=== PATIENT | female | born 1970 | race African-American/Black ===

== ENCOUNTER → 2016-10-30 | Outpatient (CLI) | payer OTHER ==
--- NOTE | 2016-10-30 14:25 | WOMENS IMAGING REPORT ---
EXAM DESCRIPTION: U/S PELVIS NON-OB COMPLETED DATE/TIME: 10/30/2016 2:01 pm REASON FOR STUDY: ABNORMAL UTERINE 93.9 N93.9 ABNORMAL UTERINE AND VAGINAL BLEEDING, UNSPECIFIED COMPARISON: None. TECHNIQUE: Dynamic and static grayscale images acquired of the pelvis via transabdominal approach an d recorded on PACS. Additional selected color Doppler and spectral images recorded. LIMITATIONS: None. FINDINGS: UTERUS: The myometrium is heterogeneous with multiple definable fibroids. The largest amanda sures 4.6 cm. ENDOMETRIAL STRIPE: 10 mm CERVIX: No nabothian cysts. RIGHT OVARY: No abnormal masses. RIGHT OVARY DOPPLER: Normal arterial vascular flow without evidence for torsion. LEFT OVARY: Not seen LEFT OVARY DOPPLER: Ovary not seen FREE FLUID: None noted. OTHER: No other significant finding. MEASUREMENTS: UTERUS: 13.8 x 7.7 x 9.8 cm ENDOMETRIAL STRIPE: 10 mm RIGHT OVARY: 27 x 21 x 28 mm LEFT OVARY: Not seen IMPRESSION: Multiple uterine fibroids. TECHNICAL DOCUMENTATION: JOB ID: [id number] [employer]- All Rights Reserved
== END ==
LOC: WI 13:43
PROVIDERS: ATTEND Family Medicine
DX: N93.9 Abnormal uterine and vaginal bleeding, unspecified (principal); D25.9 Leiomyoma of uterus, unspecified
CPT/HCPCS: 76856

== ENCOUNTER 2017-08-26 06:36 | Emergency (ER) | payer OTHER, BC ==
--- NOTE | 2017-08-26 08:23 | ER Document Report ---
ED GI/ - General Chief Complaint: Flank Pain Stated Complaint: FLANK PAIN Time Seen by Provider: 08/26/17 07:31 Mode of Arrival: Ambulatory Information source: Patient Notes: 47 yo female c/o sharp crampy LLQ pain than radiates into the left flank since wednesday when she saw her PCP (dr. heart- dx with d/c for umbilical discharge). Pain woke her up, can't lay on her left side. Progressed this week. No openings for appt today. No n/v/d/. No fever or chills. sugeries: endometriosis lap, tummy tuck in 2013. LMP 5-4-18.( due for hyst-fibroids) No urinary sx. no hx crohns colitis, or diverticulitis. No vaginal discharge or odor. dyspareunia in april. Taking keflex and septra TRAVEL OUTSIDE OF THE [place] IN LAST 30 DAYS: No - Related Data Allergies/Adverse Reactions: No Known Allergies Allergy (Unverified 08/26/17 08:25) Past Medical History - General Information source: Patient - Social History Smoking Status: Never Smoker Frequency of alcohol use: Occasional Drug Abuse: None Lives with: Family Family History: Reviewed & Not Pertinent Patient has suicidal ideation: No Patient has homicidal ideation: No Pulmonary Medical History: Reports: Hx Asthma - exercise induced Renal/ Medical History: Denies: Hx Peritoneal Dialysis Past Surgical History: Reports: Hx Abdominal Surgery - tummy tuck, Hx Gynecologic Surgery - endometriosis Review of Systems - Review of Systems Constitutional: No symptoms reported EENT: No symptoms reported Cardiovascular: No symptoms reported Respiratory: No symptoms reported Gastrointestinal: No symptoms reported Genitourinary: No symptoms reported Female Genitourinary: See HPI Musculoskeletal: Back pain Skin: No symptoms reported Hematologic/Lymphatic: No symptoms reported Neurological/Psychological: No symptoms reported Physical Exam - Vital signs Vitals: Temp Pulse Resp BP Pulse Ox 98.6 F 80 18 125/79 99 08/26/17 06:44 08/26/17 06:44 08/26/17 06:44 08/26/17 06:44 08/26/17 06:44 Interpretation: Normal - General General appearance: Appears well, Alert - HEENT Head: Normocephalic, Atraumatic Eyes: Normal Conjunctiva: Normal Pupils: PERRL Neck: Supple. No: Lymphadenopathy - Respiratory Respiratory status: No respiratory distress Chest status: Nontender Breath sounds: Normal Chest palpation: Normal - Cardiovascular Rhythm: Regular Heart sounds: Normal auscultation Murmur: No - Abdominal Inspection: Normal Distension: No distension Bowel sounds: Normal Tenderness: Tender - left pelvic Organomegaly: No organomegaly - Back Back: Normal, Nontender. No: CVA tenderness - Extremities General upper extremity: Normal inspection, Nontender, Normal color, Normal ROM , Normal temperature General lower extremity: Normal inspection, Nontender, Normal color, Normal ROM , Normal temperature, Normal weight bearing. No: Carlos's sign - Neurological Neuro grossly intact: Yes Cognition: Normal Orientation: AAOx4 Cordova Coma Scale Eye Opening: Spontaneous Tatyana Coma Scale Verbal: Oriented Tatyana Coma Scale Motor: Obeys Commands Cordova Coma Scale Total: 15 Speech: Normal Motor strength normal: LUE, RUE, LLE, RLE Sensory: Normal - Psychological Associated symptoms: Normal affect, Normal mood - Skin Skin Temperature: Warm Skin Moisture: Dry Skin Color: Normal Skin irregularity: negative: Rash Course - Re-evaluation Re-evalutation: 08/26/17 11:33 renal us is negative, UA with 3+ bacteria, no WBC, wet prep shows bacterial vaginosis which I will treat with metronidazole. test is negative. - Vital Signs Vital signs: Temp Pulse Resp BP Pulse Ox 97.4 F 78 19 134/86 H 100 08/26/17 12:28 08/26/17 12:28 08/26/17 12:28 08/26/17 12:28 08/26/17 12:28 - Laboratory Result Diagrams: 08/26/17 08:02 08/26/17 08:02 Laboratory results interpreted by me: 08/26/17 08/26/17 08:02 08:02 MCH 26.8 L RDW 17.9 H AST 43 H Discharge - Discharge Clinical Impression: Bacterial vaginosis, Left pelvic pain, Left flank pain, Bacteriuria, Left ovarian cyst Condition: Good Disposition: HOME, SELF-CARE Instructions: Metronidazole ([facility]), Ovarian Cyst ([facility]), Pelvic Pain ([facility]), Vaginosis, Bacterial ([facility]) Additional Instructions: Motrin Tylenol Flagyl for the bacterial vaginosis do not drink alcohol when you take that Gonorrhea and Chlamydia test are negative Renal ultrasound is negative Urine culture is pending Continue the cephalexin and the Septra Return to the emergency room if symptoms worsen Small left ovarian cyst See [employer] INSTRUCTOR if persists Prescriptions: Ibuprofen [Motrin 800 mg Tablet] 800 mg PO Q8HP PRN #30 tablet PRN Reason: Metronidazole [Flagyl 500 mg Tablet] 500 mg PO BID #14 tablet Referrals: TYE HEART MD [Primary Care Provider] - Follow up as needed BERONICA NEUMANN MD [ACTIVE STAFF] - Follow up as needed
[2017-08-26 08:41] LABS: ABSOLUTE EOSINOPHILS # (AUTO) 0.2 10^3/uL (0.0-0.6); ABSOLUTE LYMPHOCYTES (AUTO) 1.9 10^3/uL (0.5-4.7); ABSOLUTE MONOCYTES (AUTO) 0.3 10^3/uL (0.1-1.4); ABSOLUTE NEUT (AUTO) 2.8 10^3/uL (1.7-8.2); BASOPHILS % (AUTO) 0.6 % (0-2); EOSINOPHILS % (AUTO) 3.7 % (0-6); HEMATOCRIT 39.6 % (36.0-47.0); HEMOGLOBIN 13.1 g/dL (12.0-15.5); LYMPHOCYTES % (AUTO) 36.1 % (13-45); MEAN CORPUSCULAR HEMOGLOBIN 26.8 pg (27.0-33.4); MEAN CORPUSCULAR HGB CONC 33.1 g/dL (32.0-36.0); MEAN CORPUSCULAR VOLUME 81 fl (80-97); MONOCYTES % (AUTO) 6.2 % (3-13); PLATELET COUNT 324 10^3/uL (150-450); RED CELL DISTRIBUTION WIDTH 17.9 % (11.5-14.0); SEGMENTED NEUTROPHILS % (AUTO) 53.4 % (42-78); TOTAL CELLS COUNTED % (AUTO) 100 %; WHITE BLOOD COUNT 5.3 10^3/uL (4.0-10.5)
[2017-08-26 08:52] LABS: APPEARANCE,URINE CLEAR; BILIRUBIN,URINE NEGATIVE (NEGATIVE); COLOR,URINE YELLOW; GLUCOSE, URINE NEGATIVE (NEGATIVE); KETONES,URINE NEGATIVE (NEGATIVE); LEUKOCYTE ESTERASE,URINE NEGATIVE (NEGATIVE); NITRITE,URINE NEGATIVE (NEGATIVE); PROTEIN,URINE NEGATIVE (NEGATIVE); URINE SPECIFIC GRAVITY 1.016; UROBILINOGEN,URINE NEGATIVE mg/dL (<2.0)
[2017-08-26 09:00] LABS: ALANINE AMINOTRANSFERASE 51 U/L (9-52); ALBUMIN 4.2 g/dL (3.5-5.0); ALKALINE PHOSPHATASE 79 U/L (38-126); ANION GAP 12 (5-19); ASPARTATE AMINO TRANSFERASE 43 U/L (14-36); BILIRUBIN,DIRECT 0.3 mg/dL (0.0-0.4); BILIRUBIN,TOTAL 0.3 mg/dL (0.2-1.3); BLOOD UREA NITROGEN 12 mg/dL (7-20); CALCIUM 9.9 mg/dL (8.4-10.2); CARBON DIOXIDE 24 mmol/L (22-30); CHLORIDE 105 mmol/L (98-107); GLUCOSE 81 mg/dL (75-110); POTASSIUM 4.7 mmol/L (3.6-5.0); SODIUM 140.9 mmol/L (137-145); TOTAL PROTEIN 7.3 g/dL (6.3-8.2)
[2017-08-26 09:42] LABS: BACTERIA (WET MOUNT) 4+ BACTERIA SEEN; EPITHELIALS (WET MOUNT) 4+ EPITHELIALS SEEN; RBCS (WET MOUNT) FEW RBCS SEEN; T.VAGINALIS (WET MOUNT) NO TRICHOMONAS SEEN; WBCS (WET MOUNT) 2+ WBCS SEEN; YEAST (WET MOUNT) NO YEAST SEEN
[2017-08-26 11:11] LABS: CHLAM PCR NOT DETECTED (NOT DETECT); GON PCR NOT DETECTED (NOT DETECT)
--- NOTE | 2017-08-26 11:17 | RADIOLOGY REPORT (SQ) ---
EXAM DESCRIPTION: U/S RETROPERITON (RENAL/AORTA) COMPLETED DATE/TIME: 08/26/2017 11:04 am REASON FOR STUDY: 3+ bacteria, flank pain COMPARISON: None. TECHNIQUE: Dynamic and static grayscale images acquired of the kidneys and bladder and recorded on P ACS. Additional selected color Doppler and spectral images recorded. LIMITATIONS: None. FINDINGS: RIGHT KIDNEY: Normal size, 8.8 cm. Normal echogenicity. No solid or suspicious masses. No hydronephrosis. No calcifications. LEFT KIDNEY: Normal size, 9.4 cm. Normal echogenicity. No solid or suspicious masses. No hydronephro sis. No calcifications. BLADDER: The urinary bladder is incompletely filled and not well evaluated. OTHER FINDINGS: No other significant finding. IMPRESSION: Normal renal ultrasound. The bladder is poorly evaluated. TECHNICAL DOCUMENTATION: JOB ID: [id number] [employer]- All Rights Reserved Reading location - IP/workstation name: [email or web address]
--- NOTE | 2017-08-26 11:32 | RADIOLOGY REPORT (SQ) ---
EXAM DESCRIPTION: U/S NON OB PEL W/DOPPLER COMPLETED DATE/TIME: 08/26/2017 11:19 am REASON FOR STUDY: left pelvic pain LMP 07/30/2017 COMPARISON: 10/30/2016 TECHNIQUE: Dynamic and static grayscale images acquired of the pelvis via transabdominal approach an d recorded on PACS. Additional selected color Doppler and spectral images recorded. LIMITATIONS: None. FINDINGS: UTERUS: Multiple uterine fibroids. The largest measures 6.4 cm. ENDOMETRIAL STRIPE: No focal or generalized thickening. No masses. CERVIX: 2.8 cm. No nabothian cysts. RIGHT OVARY AND DOPPLER: Normal size. No worrisome masses. Normal arterial vascular flow without evid ence for torsion. LEFT OVARY AND DOPPLER: Normal size. No worrisome masses. There is a 13 mm cyst. Normal arterial va scular flow without evidence for torsion. FREE FLUID: None noted. OTHER: No other significant finding. MEASUREMENTS: UTERUS: 12.6 x 8.2 x 7.5 cm. ENDOMETRIAL STRIPE: 3 mm. RIGHT OVARY: 3.8 x 3 x 2.6 cm. LEFT OVARY: 2.4 x 2.1 x 1.6 cm. IMPRESSION: Uterine fibroids. TECHNICAL DOCUMENTATION: JOB ID: [id number] [employer]- All Rights Reserved Rev-08/13 Reading location - IP/workstation name: [email or web address]
[2017-08-26 12:31] VITALS: BP 134/86
== END 2017-08-26 12:31 | disposition home or self-care (01) ==
LOC: ER 06:36
DX: N76.0 Acute vaginitis (principal); B96.89 Other specified bacterial agents as the cause of diseases classified elsewhere; N83.202 Unspecified ovarian cyst, left side; J45.909 Unspecified asthma, uncomplicated
CPT/HCPCS: 36415; 76770; 76856; 80053; 81001; 84703; 85025; 87086; 87210; 87491; 87591; 93976; 99284

== ENCOUNTER → 2017-09-01 | Outpatient (CLI) | payer BC ==
--- NOTE | 2017-09-01 15:01 | RADIOLOGY REPORT (SQ) ---
EXAM DESCRIPTION: CT ABD/PELVIS WITH IV ORAL COMPLETED DATE/TIME: 09/01/2017 2:00 pm REASON FOR STUDY: OTH SYMPTOMS AND SIGNS INVOLVING THE DGSTV SYS AND ABDOMEN R19.8 OTH SYMPTOMS AND SIGNS INVOLVING THE DGSTV SYS AND ABD R10.9 UNSPECIFIED ABDOMINAL PAIN COMPARISON: None. TECHNIQUE: CT scan of the abdomen and pelvis performed with intravenous and oral contrast using karon starr scanning technique with dynamic intravenous contrast injection. Images reviewed with lung, soft t issue, and bone windows. Reconstructed coronal and sagittal MPR images reviewed. Delayed images for e valuation of the urinary system also acquired. All images stored on PACS. All CT scanners at this facility use dose modulation, iterative reconstruction, and/or weight based d osing when appropriate to reduce radiation dose to as low as reasonably achievable (ALARA). [facility]: Dose Right [facility]: CareDose [facility]: Dose Right [facility]: Teradose 4D [facility]: [place] CONTRAST TYPE AND DOSE: contrast/concentration: Isovue 370.00 mg/ml; Total Contrast Delivered: 100.0 ml; Total Saline Delivered: 38.8 ml RENAL FUNCTION: BUN 12 creatinine 0.89. RADIATION DOSE: CT Rad equipment meets quality standard of care and radiation dose reduction techniq ues were employed. CTDIvol: 19.0 - 20.1 mGy. DLP: 2055 mGy-cm.. LIMITATIONS: None. FINDINGS: LOWER CHEST: No significant findings. No nodules or infiltrates. LIVER: Normal size. Diffuse fatty infiltration. No masses. No dilated ducts. SPLEEN: Normal size. No focal lesions. PANCREAS: No masses. No significant calcifications. No adjacent inflammation or peripancreatic fluid collections. Pancreatic duct not dilated. GALLBLADDER: No identified stones by CT criteria. No inflammatory changes to suggest cholecystitis. ADRENAL GLANDS: No significant masses or asymmetry. RIGHT KIDNEY AND URETER: No solid masses. No significant calcification. No hydronephrosis or hydroure ter. LEFT KIDNEY AND URETER: No solid masses. No significant calcification. No hydronephrosis or hydrouret er. AORTA AND VESSELS: No aneurysm. No dissection. Renal arteries, SMA, celiac without stenosis. RETROPERITONEUM: No retroperitoneal adenopathy, hemorrhage or masses. BOWEL AND PERITONEAL CAVITY: No obstruction. No visualized masses. No free fluid. No inflammatory ch anges or thickening of bowel wall. APPENDIX: Normal. PELVIS: Enlarged nodular heterogenous uterus. Normal bladder. No free fluid. ABDOMINAL WALL: No masses. No hernias. BONES: No significant or acute findings. OTHER: No other significant finding. IMPRESSION: ENLARGED NODULAR HETEROGENOUS UTERUS, PRESUMABLY DUE TO UTERINE FIBROIDS. FATTY INFILTR ATION OF THE LIVER. NO OTHER SIGNIFICANT OR ACUTE FINDINGS IN THE ABDOMEN OR PELVIS. TECHNICAL DOCUMENTATION: JOB ID: [id number] Quality ID # [id number]: Final reports with documentation of one or more dose reduction techniques (e.g., Au tomated exposure control, adjustment of the mA and/or kV according to patient size, use of iterative reconstruction technique) 2010 [email or web address]- All Rights Reserved Reading location - IP/workstation name: [email or web address]
== END ==
LOC: RAD 13:20
PROVIDERS: ATTEND Physician Assistant Surgical
DX: N85.2 Hypertrophy of uterus (principal); R19.8 Other specified symptoms and signs involving the digestive system and abdomen; R10.9 Unspecified abdominal pain
CPT/HCPCS: 74177

== ENCOUNTER 2017-09-15 08:13 | Day surgery (SDC) | payer BC ==
[2017-09-13 11:03] LABS: HEMATOCRIT 39.4 % (36.0-47.0); MEAN CORPUSCULAR HEMOGLOBIN 26.8 pg (27.0-33.4); MEAN CORPUSCULAR HGB CONC 32.9 g/dL (32.0-36.0); MEAN CORPUSCULAR VOLUME 82 fl (80-97); PLATELET COUNT 313 10^3/uL (150-450); RED BLOOD COUNT 4.84 10^6/uL (3.72-5.28); RED CELL DISTRIBUTION WIDTH 18.9 % (11.5-14.0); WHITE BLOOD COUNT 5.2 10^3/uL (4.0-10.5)
[~2017-09-15 08:13] MED LIST: CEFAZOLIN 1 GM/D5W RTU 1 GM/50 ML RTUPB IV PRN; LACTATED RINGERS 1000 ML IV PRN; LIDOCAINE 0.5% INJ-PF (5 MG/ML) 50 ML SDV SUBCUT PRN
[2017-09-15] MEDS ORDERED: LIDOCAINE 1% INJ-PF (10 MG/ML) 30 ML SDV ONE (08:33)
[2017-09-15] MEDS ORDERED: FENTANYL CITRATE INJ/PF 100 MCG/2 ML AMPUL ONE (09:47)
[2017-09-15] MEDS ORDERED: PROPOFOL INJ 200 MG/20 ML VIAL IV ONE (09:48)
[2017-09-15] MEDS ORDERED: MIDAZOLAM 2 MG/2 ML INJ ONE (09:48)
[2017-09-15] MEDS ORDERED: PROMETHAZINE HCL INJ 25 MG/1 ML VIAL IV PRN ×2 (10:07)
[2017-09-15] MEDS ORDERED: MEPERIDINE HCL/PF INJ 25 MG/1 ML DISP.SYRIN IV PRN (10:07)
[2017-09-15] MEDS ORDERED: FENTANYL CITRATE INJ/PF 100 MCG/2 ML AMPUL IV PRN ×3 (10:07)
[2017-09-15] MEDS ORDERED: DIPHENHYDRAMINE HCL 50 MG/ML VIAL IV PRN (10:07)
[2017-09-15] MEDS ORDERED: OXYCODONE-ACETAMINOPHEN 5-325 MG TABLET PO PRN (11:03)
--- NOTE | 2017-09-15 11:03 | Discharge Summary ---
Discharge Summary (SDC) - Discharge Final Diagnosis: Retracted umbilicus with chronic cavity Date of Surgery: 09/15/17 Discharge Date: 09/15/17 Condition: Stable Treatment or Instructions: WOUND CARE: 1) Leave dressing intact until your follow up visit on Wednesday. Do not get the dressing wet. Complete dressing change instructions will be provided at your follow up. PAIN MANAGEMENT: You may take Toradol 10mg one pill by mouth every six hours as needed for pain. Do not take Toradol with any other NSAIDs, such as Ibuprofen, aleve, ect. FOLLOW UP: Follow up at [facility] with Dr. Bonds on 09/17/17. Call clinic sooner with any questions/concerns. Prescriptions: Ketorolac Tromethamine [Toradol 10 mg Tablet] 10 mg PO Q6HP PRN #20 tablet PRN Reason: Referrals: TYE HEART MD [Primary Care Provider] - Discharge Diet: As Tolerated Discharge Activity: Activity As Tolerated Report the Following to Your Physician Immediately: Increase in Pain, Fever over 101 Degrees, Unusual Bleeding, Redness, Swelling, Warmth, Drainage-Foul Smelling
--- NOTE | 2017-09-15 11:09 | Operative Report ---
Operative Report DATE OF SURGERY: 09/15/17 PREOPERATIVE DIAGNOSIS: Retracted reconstructed umbilicus with chronic sequestered cavity POSTOPERATIVE DIAGNOSIS: Same OPERATION: Evacuation of sequestered abscess cavity, excisional debridement of skin and subcutaneous tissue and scar tissue reconstructed umbilicus, and approximation of umbilical stalk to surrounding anterior abdominal wall SURGEON: BERONICA DURÁN TICKET SORTER: CARMINA LANGFORD ANESTHESIA: LMAC TISSUE REMOVED OR ALTERED: Sequestered fluid, desquamated skin, scar tissue COMPLICATIONS: None ESTIMATED BLOOD LOSS: Scant INTRAOPERATIVE FINDINGS: See below PROCEDURE: Patient was taken to the main operating room, placed in supine position arms abducted, and the anterior abdominal wall prepped and draped sterile fashion. Surgical plan surgical timeout were conducted Findings were significant for a reconstructed umbilicus consistent with previous panniculectomy, and repositioning of the umbilical stalk to the anterior abdominal wall skin. The patient had a very small sinus opening above the operative scar. We use this as a lumen of the umbilicus. A approximately 5 cc of serous fluid was evacuated from the umbilicus. We now bluntly stretched the umbilical stalk its more ute diameter and length. The findings are significant for this circumferential retraction of the umbilical stalk skin away from the anterior abdominal wall, with the perimeter fibrosis thereby causing the closing off of the umbilical stalk from anterior abdominal wall skin. Using a 15 blade, we excised the scar tissue between the anterior abdominal wall skin, and the umbilical stalk again in a circumferential fashion. There was no evidence of dayo pus, tumor, or hematoma. The umbilicus was approximately 2 cm in diameter 7 cm depth. We now came around circumferentially with approximately 10 interrupted vertical mattress sutures, of 4-0 Ethilon, approximating the room at her anterior abdominal wall skin to the helical stalk skin. Effectively we created the umbilical opening which is approximately 2 and half centimeters in diameter. We now felt the operation was complete. A packing of Xeroform was placed into the depths of the umbilicus , 4 x 4's and a bulky dressing applied. Patient tolerated the procedure well, extubated, and taken recovery in stable condition. The physician assistant to the director, Ms. Gutierrez, provided assistance during this case by: Assisting and port insertion, retracting tissue, instillation of local anesthesia and closure of skin incisions.
[2017-09-15 12:47] VITALS: BP 119/80
== END 2017-09-15 12:45 | disposition home or self-care (01) ==
LOC: OROUT 08:13
PROVIDERS: ATTEND Surgery
DX: L02.211 Cutaneous abscess of abdominal wall (principal); K21.9 Gastro-esophageal reflux disease without esophagitis; D25.9 Leiomyoma of uterus, unspecified; N39.0 Urinary tract infection, site not specified; J45.909 Unspecified asthma, uncomplicated; Z86.010 Personal history of colon polyps; Z79.899 Other long term (current) drug therapy; Z79.1 Long term (current) use of non-steroidal anti-inflammatories (NSAID)
CPT/HCPCS: 11042; 36415; 85027; 81025; J2250; J0690; J3010; J3490; J2704; 400; 840

== ENCOUNTER 2018-08-15 05:33 | Inpatient (IN) | payer OTHER, BC ==
[2018-08-11 10:57] LABS: APPEARANCE,URINE SLIGHTLY-CLOUDY; BILIRUBIN,URINE NEGATIVE (NEGATIVE); COLOR,URINE YELLOW; GLUCOSE, URINE NEGATIVE (NEGATIVE); KETONES,URINE TRACE mg/dL (NEGATIVE); LEUKOCYTE ESTERASE,URINE MODERATE (NEGATIVE); NITRITE,URINE NEGATIVE (NEGATIVE); PROTEIN,URINE NEGATIVE (NEGATIVE); URINE SPECIFIC GRAVITY 1.018; UROBILINOGEN,URINE NEGATIVE mg/dL (<2.0)
[2018-08-11 11:27] LABS: HEMATOCRIT 42.2 % (36.0-47.0); HEMOGLOBIN 14.1 g/dL (12.0-15.5); MEAN CORPUSCULAR HEMOGLOBIN 29.3 pg (27.0-33.4); MEAN CORPUSCULAR HGB CONC 33.4 g/dL (32.0-36.0); MEAN CORPUSCULAR VOLUME 88 fl (80-97); PLATELET COUNT 371 10^3/uL (150-450); RED CELL DISTRIBUTION WIDTH 14.3 % (11.5-14.0); WHITE BLOOD COUNT 5.4 10^3/uL (4.0-10.5)
[2018-08-11 11:49] LABS: ALANINE AMINOTRANSFERASE 21 U/L (9-52); ALBUMIN 4.2 g/dL (3.5-5.0); ALKALINE PHOSPHATASE 69 U/L (38-126); ANION GAP 12 (5-19); ASPARTATE AMINO TRANSFERASE 20 U/L (14-36); BILIRUBIN,DIRECT 0.3 mg/dL (0.0-0.4); BILIRUBIN,TOTAL 0.4 mg/dL (0.2-1.3); BLOOD UREA NITROGEN 6 mg/dL (7-20); CALCIUM 10.1 mg/dL (8.4-10.2); CARBON DIOXIDE 25 mmol/L (22-30); CHLORIDE 106 mmol/L (98-107); GLUCOSE 78 mg/dL (75-110); NEONATAL BILIRUBIN RESULT 0.1 mg/dL (0.1-1.1); POTASSIUM 4.4 mmol/L (3.6-5.0); SODIUM 142.8 mmol/L (137-145); TOTAL PROTEIN 7.4 g/dL (6.3-8.2)
--- NOTE | 2018-08-12 16:36 | EKG REPORT ---
SEVERITY:- BORDERLINE ECG - SINUS RHYTHM BORDERLINE INFERIOR Q WAVES : Confirmed by: Shahriar Bravo MD 12-Aug-2018 16:35:53
[~2018-08-15 05:33] MED LIST changes: -CEFAZOLIN 1 GM/D5W RTU 1 GM/50 ML RTUPB IV PRN; +CEFAZOLIN 2 GM/D5W RTU 2 GM/50 ML RTUPB IV ONE; +CEFAZOLIN 2 GM/D5W RTU 2 GM/50 ML RTUPB IV PRN
[2018-08-15] MEDS ORDERED: FENTANYL CITRATE INJ/PF 100 MCG/2 ML AMPUL ONE (06:12)
[2018-08-15] MEDS ORDERED: MIDAZOLAM 2 MG/2 ML INJ ONE (06:13)
[2018-08-15] MEDS ORDERED: PROPOFOL INJ 200 MG/20 ML VIAL IV ONE (06:13)
[2018-08-15] MEDS ORDERED: DEXAMETHASONE SOD PHOSPHATE INJ 4 MG/1 ML VIAL ONE ×2 (06:13→13:26)
[2018-08-15] MEDS ORDERED: SUGAMMADEX SODIUM 200 MG/2 ML SDV IV ONE (06:13)
[2018-08-15] MEDS ORDERED: ONDANSETRON HCL INJ/PF 4 MG/2 ML SDV ONE ×2 (06:13→10:21)
[2018-08-15] MEDS ORDERED: LIDOCAINE 0.5% INJ-PF (5 MG/ML) 50 ML SDV ONE (06:14)
[2018-08-15] MEDS ORDERED: ONDANSETRON HCL INJ/PF 4 MG/2 ML SDV IV PRN (08:11)
[2018-08-15] MEDS ORDERED: PROMETHAZINE HCL INJ 25 MG/1 ML VIAL IV PRN ×3 (08:11→09:58)
[2018-08-15] MEDS ORDERED: MORPHINE SULFATE 10 MG/ML INJ IV PRN (08:11)
[2018-08-15] MEDS ORDERED: DIPHENHYDRAMINE HCL 50 MG/ML VIAL IV PRN (08:11)
[2018-08-15] MEDS ORDERED: MEPERIDINE HCL/PF INJ 25 MG/1 ML DISP.SYRIN IV PRN (08:11)
[2018-08-15] MEDS ORDERED: FENTANYL CITRATE INJ/PF 100 MCG/2 ML AMPUL IV PRN ×3 (08:11)
[2018-08-15] MEDS ORDERED: RINGERS SOLUTION,LACTATED 1,000 ML IV PRN (09:58)
[2018-08-15] MEDS ORDERED: OXYCODONE-ACETAMINOPHEN 5-325 MG TABLET PO PRN ×3 (09:58→10:55)
[2018-08-15] MEDS ORDERED: ACETAMINOPHEN 325 MG TABLET PO PRN (09:58)
[2018-08-15] MEDS ORDERED: ACETAMINOPHEN 1,000 MG/100 ML RTUPB IV PRN (09:58)
[2018-08-15] MEDS ORDERED: HYDROMORPHONE HCL INJ/PF 2 MG/ML AMPULE IV PRN (09:58)
[2018-08-15] MEDS ORDERED: SIMETHICONE 80 MG TAB.CHEW PO PRN (09:58)
[2018-08-15] MEDS: FENTANYL CITRATE INJ/PF 100 MCG/2 ML AMPUL ONE ×2 (10:00→10:05)
--- NOTE | 2018-08-15 10:13 | Operative Report ---
Operative Report DATE OF SURGERY: 08/15/18 PREOPERATIVE DIAGNOSIS: Fibroid uterus, heavy menses, pelvic pain POSTOPERATIVE DIAGNOSIS: Same OPERATION: Total abdominal hysterectomy SURGEON: MIKE MOREAU ANESTHESIA: GA TISSUE REMOVED OR ALTERED: Uterus and cervix COMPLICATIONS: None ESTIMATED BLOOD LOSS: 120 cc INTRAOPERATIVE FINDINGS: Normal ovaries, very small. Large fibroid uterus that fills the entire pelvis. PROCEDURE: Patient was taken the OR and placed in supine position. General anesthesia was induced. A Yeung catheter was placed sterilely. The abdomen was prepared and draped. A low transverse incision was made along her previous scar. This was carried down to the level of the fascia and the fascia was nicked in midline incision extended bilaterally. The fascia was off the rectus muscles using sharp and blunt dissection. The rectus muscles were midline. Peritoneum was entered without incident. The peritoneal incision was extended superiorly and inferiorly take care not to injure bladder. An Blaise retractor was placed. The bowel contents were packed back with 3 moist lap sponges. The patient had a large fibroid uterus that filled the pelvis. The round ligaments were identified and then clamped cauterized and cut with the LigaSure device. The ovaries could be seen and were quite small with no cysts and were left in place as per her wishes. The utero-ovarian pedicles were clamped cauterized and cut with the LigaSure device as well. The anterior leaf of the broad ligament was incised with Metzenbaum scissors creating a bladder flap. The bladder was taken off the anterior aspect of the cervix using sharp and blunt dissection. Next using small bites with the LigaSure the broad ligament bilaterally was clamped ligated and cut with the LigaSure device. Slowly exposure improved and the uterine uterine arteries were then skeletonized and then clamped ligated and cut with the LigaSure device. At this point the uterus became very blanched indicating that its blood supply was severed. The uterine body was cut free from the cervix and passed off the field. Now exposure to the pelvis was much improved with a large fibroid uterus out of the way. The cervical stump was grasped with Koker clamps. Using sharp and blunt dissection the bladder flap was further taken off the lower portion of the cervix. The cardinal ligaments were then clamped with curved Rosie clamps cut and then ligated with transfixation suture of 0 Vicryl bilaterally. Upon reaching the vaginal angles the cervix was removed by clamping across the vaginal angles bilaterally with curved Rosie clamps. This tissue was then cut with areli excising the cervix free. Angle sutures were placed bilaterally using 0 Vicryl. The remainder of the vaginal cuff was closed with a running locking layer of 0 Vicryl. Overall hemostasis was good. The bladder was inspected and there was no evidence of injury. The ureters were seen at the pelvic brim and were small and peristalsing. There was some small bleeding just anterior to the cervix. FloSeal was placed anterior to the cervix as I did not want to use much cautery in this area or sutures in this area. This stopped the bleeding very well. The lap sponges were then removed as was the retractor. The bowel was allowed to fall in its natural configuration. The anterior abdominal wall peritoneum was closed with a running 2-0 chromic stitch. The subfascial tissues were inspected for bleeding the fascia was closed with a running 0 Vicryl in 2 segments. The wound was irrigated and this subcutaneous tissue was closed with a 2-0 plain gut stitch and the skin was closed with a 4-0 undyed Vicryl stitch. Dressing was applied.
[2018-08-15] MEDS ORDERED: HYDROMORPHONE HCL INJ/PF 2 MG/ML AMPULE ONE (10:20)
[2018-08-15] MEDS ORDERED: KETOROLAC TROMETHAMINE INJ/PF 30 MG/1 ML SDV ONE (10:42)
[2018-08-15] MEDS ORDERED: KETOROLAC TROMETHAMINE INJ/PF 30 MG/1 ML SDV IV PRN (10:55)
[2018-08-15] MEDS ORDERED: IBUPROFEN 800 MG TABLET PO PRN (10:55)
[2018-08-15] MEDS ORDERED: SUCCINYLCHOLINE CHLORIDE INJ 200 MG/10 ML VIAL ONE (13:26)
[2018-08-15] MEDS ORDERED: ROCURONIUM BROMIDE INJ 50 MG/5 ML VIAL IV ONE (13:26)
[2018-08-15] MEDS ORDERED: GLYCOPYRROLATE 1 MG/5 ML SYRINGE ONE (13:26)
[2018-08-15] MEDS: DOCUSATE SODIUM 100 MG CAPSULE PO SCH ×2 (13:41→18:17)
[2018-08-15] MEDS ORDERED: HYDROXYZINE PAMOATE 25 MG CAPSULE PO PRN (14:56)
[2018-08-15 17:00] LABS: ABSOLUTE LYMPHOCYTES (AUTO) 0.5 10^3/uL (0.5-4.7); ABSOLUTE MONOCYTES (AUTO) 0.2 10^3/uL (0.1-1.4); ABSOLUTE NEUT (AUTO) 9.3 10^3/uL (1.7-8.2); BASOPHILS % (AUTO) 0.5 % (0-2); HEMATOCRIT 40.4 % (36.0-47.0); LYMPHOCYTES % (AUTO) 5.4 % (13-45); MEAN CORPUSCULAR HEMOGLOBIN 28.5 pg (27.0-33.4); MEAN CORPUSCULAR HGB CONC 32.1 g/dL (32.0-36.0); MEAN CORPUSCULAR VOLUME 89 fl (80-97); MONOCYTES % (AUTO) 1.8 % (3-13); PLATELET COUNT 317 10^3/uL (150-450); RED BLOOD COUNT 4.55 10^6/uL (3.72-5.28); RED CELL DISTRIBUTION WIDTH 14.4 % (11.5-14.0); SEGMENTED NEUTROPHILS % (AUTO) 92.3 % (42-78); TOTAL CELLS COUNTED % (AUTO) 100 %
[2018-08-15 17:33] LABS: ANION GAP 11 (5-19); BLOOD UREA NITROGEN 8 mg/dL (7-20); CARBON DIOXIDE 22 mmol/L (22-30); CHLORIDE 103 mmol/L (98-107); GLUCOSE 126 mg/dL (75-110); POTASSIUM 4.6 mmol/L (3.6-5.0); SODIUM 136.4 mmol/L (137-145)
[2018-08-15] MEDS: KETOROLAC TROMETHAMINE INJ/PF 30 MG/1 ML SDV IV SCH (18:17)
[2018-08-15] MEDS: RINGERS SOLUTION,LACTATED 1,000 ML IV PRN (19:30)
[2018-08-16] MEDS: KETOROLAC TROMETHAMINE INJ/PF 30 MG/1 ML SDV IV SCH (01:57)
[2018-08-16] MEDS: RINGERS SOLUTION,LACTATED 1,000 ML IV PRN (04:23)
[2018-08-16 06:22] LABS: HEMATOCRIT 37.4 % (36.0-47.0); HEMOGLOBIN 12.3 g/dL (12.0-15.5); MEAN CORPUSCULAR HEMOGLOBIN 28.5 pg (27.0-33.4); MEAN CORPUSCULAR HGB CONC 32.8 g/dL (32.0-36.0); MEAN CORPUSCULAR VOLUME 87 fl (80-97); PLATELET COUNT 333 10^3/uL (150-450); RED BLOOD COUNT 4.31 10^6/uL (3.72-5.28); RED CELL DISTRIBUTION WIDTH 14.2 % (11.5-14.0); WHITE BLOOD COUNT 10.4 10^3/uL (4.0-10.5)
--- NOTE | 2018-08-16 08:05 | PDOC PROGRESS REPORT ---
Subjective Progress Note for:: 08/16/18 Subjective:: Doing well Reason For Visit: N93.8 OTHER SPECIFIED ABNORMAL UTERINE AND VAGINAL Physical Exam - Physical Exam Vital Signs: Temp Pulse Resp BP Pulse Ox 98.3 F 102 H 14 116/65 99 08/16/18 03:31 08/16/18 03:31 08/16/18 03:31 08/16/18 03:31 08/16/18 03:31 Intake & Output 08/15/18 08/16/18 08/17/18 06:59 06:59 06:59 Intake Total 0 3170 Output Total 2775 Balance 0 395 General appearance: PRESENT: no acute distress GI/Abdominal exam: PRESENT: other - slight bleeding at the left incision. will change dressing today Result Laboratory Results: 08/16/18 05:54 08/15/18 16:37 08/15/18 08/15/18 08/16/18 16:37 16:37 05:54 WBC 10.0 10.4 RBC 4.55 4.31 Hgb 13.0 12.3 Hct 40.4 37.4 MCV 89 87 MCH 28.5 28.5 MCHC 32.1 32.8 RDW 14.4 H 14.2 H Plt Count 317 333 Seg Neutrophils % 92.3 H Lymphocytes % 5.4 L Monocytes % 1.8 L Eosinophils % 0.0 Basophils % 0.5 Absolute Neutrophils 9.3 H Absolute Lymphocytes 0.5 Absolute Monocytes 0.2 Absolute Eosinophils 0.0 Absolute Basophils 0.0 Sodium 136.4 L Potassium 4.6 Chloride 103 Carbon Dioxide 22 Anion Gap 11 BUN 8 Creatinine 0.65 Est GFR ( Amer) > 60 Est GFR (Non-Af Amer) > 60 Glucose 126 H Calcium 9.0 Impressions: She is doing very well today. Assessment & Plan - Diagnosis (1) Fibroids Is this a current diagnosis for this admission?: Yes - Time Time Spent with patient: 15-24 minutes Within: within 24 hours - Plan Summary Plan Summary: Remove du, oral pain meds, ambulate
[2018-08-16] MEDS: DOCUSATE SODIUM 100 MG CAPSULE PO SCH ×2 (09:57→18:14)
[2018-08-16] MEDS: IBUPROFEN 800 MG TABLET PO SCH ×3 (13:05→23:44)
[2018-08-16] MEDS: OXYCODONE-ACETAMINOPHEN 5-325 MG TABLET PO PRN (15:57)
[2018-08-17] MEDS: KETOROLAC TROMETHAMINE INJ/PF 30 MG/1 ML SDV IV SCH (03:41)
[2018-08-17] MEDS: OXYCODONE-ACETAMINOPHEN 5-325 MG TABLET PO PRN (03:46)
[2018-08-17] MEDS: IBUPROFEN 800 MG TABLET PO SCH (05:44)
--- NOTE | 2018-08-17 07:32 | PDOC DISCHARGE SUMMARY ---
General - Admit/Disc Date/PCP Admission Date/Primary Care Provider: 08/15/18 05:33 TYE HEART MD Discharge Date: 08/17/18 - Discharge Diagnosis (1) Fibroids Is this a current diagnosis for this admission?: Yes - Additional Information Resuscitation Status: Full Code Home Medications: Norethindrone Acetate [Aygestin 5 mg Tablet] 10 mg PO .STOPPING 09/13/17 History of Present Illness Patient complains of: Heavy menses pelvic pressure and pain History of Present Illness: JULIA MIRANDA is a 48 year old female She presents with a history of fibroid uterus pelvic pressure pain and heavy menses and request definitive surgical treatment with hysterectomy. She would like to leave her ovaries as long as they are normal. Hospital Course Hospital Course: Patient was admitted and underwent abdominal hysterectomy. Please see the operative report for further details. Postoperatively she did well. The night of surgery she did well and her hemoglobin and hematocrit were stable. Postop day 1 her Yeung was removed and she was able to ambulate and her diet was advanced. She is now postop day 2 and wishes to go home today. Discharge medications will include Percocet. We will have her follow-up in a week. Physical Exam - Physical Exam Vital Signs: Temp Pulse Resp BP Pulse Ox 98.4 F 79 18 137/82 H 99 08/17/18 03:56 08/17/18 03:56 08/17/18 03:56 08/17/18 03:56 08/17/18 03:56 Intake & Output 08/16/18 08/17/18 08/18/18 06:59 06:59 06:59 Intake Total 3170 Output Total 2775 0 Balance 395 -2050 General appearance: PRESENT: no acute distress Head exam: PRESENT: atraumatic GI/Abdominal exam: PRESENT: normal bowel sounds, soft, other - Well-healing incision noted.. ABSENT: distended, guarding, mass, organolmegaly, rebound, tenderness Result Laboratory Results: 08/16/18 05:54 08/15/18 16:37 Impressions: She is postop day 2 and ready to go home today. She will go home to rest no driving follow-up in 1 week. Plan Discharge Plan: Home to rest. No heavy lifting no driving. She may shower as normal. She will follow-up in 1 week in the office Time Spent: Less than 30 Minutes Acute Heart Failure Is this a Heart Failure Patient?: No
[2018-08-17 08:09] VITALS: BP 119/73
== END 2018-08-17 08:56 | disposition home or self-care (01) | DRG 743 ==
LOC: INOR 05:33 → EDSTATUS 07:30 → 2S 11:12
PROVIDERS: ADMIT Obstetrics & Gynecology; ATTEND Obstetrics & Gynecology
PROC: 0UT90ZZ Resection of Uterus, Open Approach (ICD-10-PCS; principal; 2018-08-15 07:30)
DX: D25.1 Intramural leiomyoma of uterus (principal); D25.0 Submucous leiomyoma of uterus; D25.2 Subserosal leiomyoma of uterus; N93.8 Other specified abnormal uterine and vaginal bleeding; J45.909 Unspecified asthma, uncomplicated; F43.10 Post-traumatic stress disorder, unspecified
CPT/HCPCS: 36415; 80048; 80053; 81001; 81025; 840; 85025; 85027; 86850; 86900; 86901; 88307; 93005; 93010; 94799; J0330; J0690; J1100; J1170; J1885; J2250; J2405; J2550; J2704; J3010; J3490; J7120